=== PATIENT | female | born 1995 | race Caucasian/White ===

== ENCOUNTER → 2023-09-15 | Outpatient (CLI) | payer OTHER, SELFPAY ==
[2023-09-15 16:58] LABS: Absolute Lymphocyte Count 2.07 X10^3/uL (0.83-4.51); Absolute Neutrophil Count 7.7 X10^3/uL (2.0-7.7); Basophil# 0.03 X10^3/uL; Basophil% 0.3 % (0-1); Eosinophil# 0.07 X10^3/uL; Eosinophils% 0.7 % (0-5); Hematocrit 38.1 % (37-47); Hemoglobin 12.5 g/dL (12.0-15.0); Lymphocyte # 2.07 X10^3/ul (0.83-4.51); Lymphocyte % 19.8 % (19-41); Mean Corp Hgb Conc 32.8 g/dL (32-36); Mean Corpuscular Hgb 28.7 pg (27.0-32.0); Mean Corpuscular Volume 87.6 fL (81-99); Mean Platelet Vol. 10.4 fl (6.2-12.0); Monocyte# 0.54 X10^3/uL; Monocyte% 5.2 % (0-10); NRBC Flagged by Analyzer 0 % (0-5); Neutrophil # 7.71 X10^3/uL (2.7-7.7); Neutrophil % 73.6 % (47-70); Platelet Count 269 K/mm3 (150-450); RBC Distribution Width CV 11.6 % (11.6-14.6); RBC Distribution Width SD 36.9 fl (35.1-43.9); Red Blood Count 4.35 M/mm3 (4.2-5.4); White Blood Count 10.5 K/mm3 (4.4-11.0)
[2023-09-15 17:49] LABS: HIV - WCH Non-Reactive (Nonreactive); Hepatitis B Surface Antigen Non-Reactive (Nonreactive); Hepatitis C Antibody Non-Reactive (Nonreactive); Rubella IgG Reactive (Nonreactive); Syphilis Antibodies Non-reactive
[2023-09-18 07:09] LABS: Chlamydia By Nucleic Acid AMP Negative (Negative); Gonococcus By Nucleic Acid AMP Negative (Negative)
== END | disposition home or self-care (01) ==
PROVIDERS: Referring Provider Advanced Practice Midwife; Visit Provider Advanced Practice Midwife
DX: Z34.00 Encounter for supervision of normal first pregnancy, unspecified trimester (principal)
CPT/HCPCS: 36415; 85025; 86703; 86762; 86780; 86803; 86850; 86900; 86901; 87086; 87340; 87491; 87591; 88175; G0145

== ENCOUNTER → 2023-12-19 | Outpatient (CLI) | payer MEDICAID, SELFPAY ==
--- NOTE | 2023-12-19 13:30 | US_ITS ---
STUDY: SECOND AND THIRD TRIMESTER OBSTETRICAL ULTRASOUND REASON FOR EXAM: Female, 27 years old anatomy LMP: July 18, 2023. TECHNIQUE: Transabdominal and Transvaginal TECHNICAL QUALITY: Adequate. PRIOR ULTRASOUND: None. FINDINGS: There is a single intrauterine fetus. The fetus is in a breech presentation. There is demonstrated cardiac activity with a heart rate of 157 bpm. There is a normal amniotic fluid volume. The largest amniotic fluid pocket measures 4 cm x 11.4 cm. The amniotic fluid index (ANDERSON) is within normal limits. The placenta is anterior in location and is not low lying. There are Grade 0 placental changes. The cervix measures 4.5 cm in length. The adnexal regions are not visualized. BIOMETRY: BPD: 5.41 cm: 22 weeks, 3 days HC: 20.08 cm: 22 weeks, 2 days AC: 17.73 cm: 22 weeks, 4 days FL: 3.64 cm: 21 weeks, 4 days CI: 80.3% FL/BPD: 67.4% FL/HC: 18.1% FL/AC: 20.5% HC/AC: 1.1 age by current US: 21 weeks, 6 days. NICOLÁS by current US: April 24, 2024. Estimated weight: 487 grams, +/- 73 grams, 56 %. Age by LMP: 22 weeks, 0 days. NICOLÁS by LMP: April 23, 2024. ANATOMY: Gender: Male Cranium: Normal lateral ventricles. Normal choroid plexus. Normal cerebellum. Normal cisterna magna. Normal face, nose and lips. Chest: Normal 4-chamber heart. Abdomen/Pelvis: Normal diaphragm. Normal stomach. Normal abdominal wall. Normal cord insertion. Normal 3 vessel cord. Normal kidneys. Normal bladder. Spine: Normal cervical spine. Normal thoracic spine. Normal lumbar spine. Normal sacrum. Extremities: Normal bilateral upper extremities. Normal bilateral lower extremities. IMPRESSION: Single live uterine gestation with a mean gestational age of 21 weeks and 6 days. Electronically Signed: Anand Cardenas MD at 15:05 EDT , STUDY: FIRST TRIMESTER OBSTETRICAL ULTRASOUND REASON FOR EXAM: Female, 27 years old . Cervical length. LMP: July 18, 2023. TECHNIQUE: Transvaginal TECHNICAL QUALITY: Adequate. PRIOR ULTRASOUND: None. FINDINGS: Cervical length measures 4.5 cm. US/OB Anatomy Scan IMPRESSION: Cervical length measures 4.5 cm. Electronically Signed: Anand Cardenas MD at 15:05 EDT ,
== END | disposition home or self-care (01) ==
LOC: OPUS 13:30
PROVIDERS: Referring Provider Nurse Practitioner Women's Health; Visit Provider Nurse Practitioner Women's Health
DX: Z34.92 Encounter for supervision of normal pregnancy, unspecified, second trimester (principal)
CPT/HCPCS: 76805; 76817

== ENCOUNTER → 2024-02-03 | Outpatient (CLI) | payer OTHER, SELFPAY ==
[2024-02-03 09:18] LABS: Absolute Lymphocyte Count 1.27 X10^3/uL (0.83-4.51); Absolute Neutrophil Count 7.6 X10^3/uL (2.0-7.7); Basophil# 0.02 X10^3/uL; Basophil% 0.2 % (0-1); Eosinophil# 0.05 X10^3/uL; Eosinophils% 0.5 % (0-5); Hematocrit 33.4 % (37-47); Hemoglobin 11.1 g/dL (12.0-15.0); Lymphocyte # 1.27 X10^3/ul (0.83-4.51); Lymphocyte % 13.5 % (19-41); Mean Corp Hgb Conc 33.2 g/dL (32-36); Mean Corpuscular Hgb 30.1 pg (27.0-32.0); Mean Corpuscular Volume 90.5 fL (81-99); Mean Platelet Vol. 9.8 fl (6.2-12.0); Monocyte# 0.33 X10^3/uL; Monocyte% 3.5 % (0-10); NRBC Flagged by Analyzer 0 % (0-5); Neutrophil # 7.63 X10^3/uL (2.7-7.7); Neutrophil % 81.1 % (47-70); Platelet Count 210 K/mm3 (150-450); RBC Distribution Width CV 12.5 % (11.6-14.6); RBC Distribution Width SD 40.8 fl (35.1-43.9); Red Blood Count 3.69 M/mm3 (4.2-5.4); White Blood Count 9.4 K/mm3 (4.4-11.0)
[2024-02-03 09:37] LABS: Glucose Challenge Gest 1H 50g 118 mg/dL (70-140)
[2024-02-03 10:20] LABS: HIV - WCH Non-Reactive (Nonreactive); Syphilis Antibodies Non-reactive
== END | disposition home or self-care (01) ==
PROVIDERS: Referring Provider Nurse Practitioner Women's Health; Visit Provider Nurse Practitioner Women's Health
DX: Z34.92 Encounter for supervision of normal pregnancy, unspecified, second trimester (principal)
CPT/HCPCS: 36415; 82950; 85025; 86703; 86780

== ENCOUNTER → 2024-04-02 | Outpatient (CLI) | payer OTHER, SELFPAY | END | disposition home or self-care (01) | LOC: LABSPEC 16:24 | PROVIDERS: Referring Provider Obstetrics & Gynecology; Visit Provider Obstetrics & Gynecology | DX: Z34.02 Encounter for supervision of normal first pregnancy, second trimester (principal) | CPT/HCPCS: 87081 ==

== ENCOUNTER 2024-05-03 11:38 | Inpatient (IN) | payer OTHER, SELFPAY ==
[2024-05-03] VITALS (19 sets, daily range): BP systolic 118–140; BP diastolic 78–95; PULSE 81–108; RESP 16–18; TEMP 36.3–36.8; O2SAT 80–99; BMI 36.2
[2024-05-03] MEDS: 0.9% Saline Lock 10 ML Syringe IV (13:05)
[2024-05-03 13:23] LABS: Absolute Lymphocyte Count 1.36 X10^3/uL (0.83-4.51); Absolute Neutrophil Count 8.4 X10^3/uL (2.0-7.7); Basophil# 0.02 X10^3/uL; Basophil% 0.2 % (0-1); Eosinophil# 0.03 X10^3/uL; Eosinophils% 0.3 % (0-5); Hematocrit 37.4 % (37-47); Hemoglobin 12.5 g/dL (12.0-15.0); Lymphocyte # 1.36 X10^3/ul (0.83-4.51); Lymphocyte % 13.2 % (19-41); Mean Corp Hgb Conc 33.4 g/dL (32-36); Mean Corpuscular Hgb 29.1 pg (27.0-32.0); Mean Platelet Vol. 10.7 fl (6.2-12.0); Monocyte# 0.49 X10^3/uL; Monocyte% 4.8 % (0-10); NRBC Flagged by Analyzer 0 % (0-5); Neutrophil # 8.35 X10^3/uL (2.7-7.7); Neutrophil % 80.9 % (47-70); Platelet Count 203 K/mm3 (150-450); RBC Distribution Width CV 13.7 % (11.6-14.6); White Blood Count 10.3 K/mm3 (4.4-11.0)
[2024-05-03 14:25] LABS: Syphilis Antibodies Non-reactive
[2024-05-03] MEDS: 0.9% Normal Saline Single 100 ML IV.SOLN. INTRA-UTER (15:16)
--- NOTE | 2024-05-03 17:46 | HP.PCM.OB_ITS ---
HPI - General General Date of Admission: 05/03/24 HPI Narrative BERT CAMPBELL, is a 28 F who presents for iOL secondary to oligo ANDERSON 4 cm. no vb lof admits good fm, irreular ctx. Maternal Data Information NICOLÁS Calculator Estimated Delivery Date Method Current WG Current Estimate 04/25/24 LMP (Certain) 41w 1d Other Estimates 04/23/24 Ultrasound #2 41w 3d PFSH PFS Medical History (Updated 05/03/24 @ 13:45 by Min Maldonado) Oligohydramnios Home Medications ?Medication ?Instructions ?Recorded ?Last Taken ?Type omega-3 fatty acids 1,250 mg 1,250 mg PO DAILY 09/09/23 05/02/24 08:00 History capsule 1,250 mg vit,calcium no.40-iron 3 tab PO DAILY 09/09/23 05/02/24 08:00 History fum 27 mg iron-folate no.1 1 mg 3 tabs tablet (PNV-Select) famotidine 20 mg tablet (Pepcid) 15 mg PO QDAY PRN heart burn 03/02/24 05/02/24 21:30 History 15 mg echinacea 400 mg capsule 800 mg PO DAILY immu 05/03/24 05/02/24 08:00 History 800 mg magnesium L-threonate 48 mg 96 mg PO DAILY brain health 05/03/24 05/02/24 08:00 History magnesium (667 mg) capsule 96 mg Allergy/AdvReac Type Severity Reaction Status Date / Time No Known Allergies Allergy Verified 05/03/24 14:03 Family History Father Colon cancer, Onset Age: 45 Grandmother Glaucoma paternal Uncle CVA (cerebral vascular accident), Onset Age: 78 Aunt Cerebral palsy Paternal Grandmother Breast cancer, Onset Age: 82 Maternal Grandfather Cancer skin cancer Uncle Cancer Maternal- Bone Marrow Surgical History S/P sclerotherapy of varicose veins [place] teeth extracted Social History adopted: No household members: spouse current occupational status: employed current occupation: massage therapist current occupational exposures/hazards: No pets and animals: Yes pets and animals: dog(s) history of recent travel: Yes ([place]) out of state: Yes out of country: No sexually active: Yes Smoking Status: Never smoker alcohol intake: current alcohol intake frequency: a few times a month details: Not while substance use type: does not use well-balanced diet: about half the time caffeine: Yes (2 or3 times per week) Type: coffee eating out: 1-3 times/week during the past year weight has: remained stable what type of physical activity do you participate in: walking, bicycling and weight training frequency: 5-6 times per week duration: 15-30 minutes/day anson/adventist: Hindu seatbelt use: always do you feel safe at home: Yes additional social history: Klaudia- Construction History 1 Elective abortions Hx Para 0 Spontaneous abortions Hx # Term Pregnancies Ectopic pregnancies Hx # Pregnancies Multiple births # of living children Visit Details Expected Delivery Route/Plan Labor Preferences- CB/BF classes: no labor support person: Steve labor intervention preferences: tub, nitrous pain management options preferred: limited intervention if possible. Nitrous cut cord/dad catch: cord : yes PP control planned: [] discussed possible routes of delivery and associated risks: [] special requests: [] Plans Covid status: [] Flu vaccine: declines Tdap vaccine: declined Rhogam: NA LARC form signed: declined movement and labor precautions reviewed. Problem list reviewed and updated with the most current plan of care details and appropriate orders placed. Relevant counseling for the gestational age provided. Continue routine care and follow up unless otherwise noted in visit notes/problem list details OB Flowsheet Initial Weight: 159 lb Date -?-?-?-?-?-?-?-?-?-?-?-?- EGA Weight BP Urine Prot -?-?-?-?-?-?-?-?-?-?-?-?- Glucose FHR FuHt Pres Dilation -?-?-?-?-?-?-?-?-?-?-?-?- Effaced St Visit Note 09/15/23 -?-?-?-?-?-?-?-?-?-?-?-?- 8w 1d 159 lb 2 oz (+2 oz) 111/70 -?-?-?-?-?-?-?-?-?-?-?-?- 167 -?-?-?-?-?-?-?-?-?-?-?-?- KW- CRL cons wit h dates. declines NIPT. 10/17/23 -?-?-?-?-?-?-?-?-?-?-?-?- 12w 5d 156 lb (-3 lb) 111/66 -?-?-?-?-?-?-?-?-?-?-?-?- 153 -?-?-?-?--?-?-?-?-?-?-?-?- JV- no lof, vagi nal bleeding, or cramping. Some pressure. ultrasound today shows consistent CRL. 11/14/23 -?-?-?-?-?-?-?-?-?-?-?-?- 16w 5d 158 lb (-16 oz) 108/72 Negative -?-?-?-?-?-?-?-?-?-?-?-?- Negative 145 -?-?-?-?-?-?-?-?-?-?-?-?- SM- no vb crmapi ng US scheduled 12/09/23 -?-?-?-?-?-?-?-?-?-?-?-?- 20w 2d 163 lb (+4 lb) 104/68 Negative -?-?-?-?-?-?-?-?-?-?-?-?- Negative 153 -?-?-?-?-?-?-?-?-?-?-?-?- -NO VB. Nas Cooper. Cancelling MFM US due to insurance and ordered w/[facility]. 01/06/24 -?-?-?-?-?-?-?-?-?-?-?-?- 24w 2d 169 lb 8 oz (+10 lb 8 oz) 106/64 Negative -?-?-?-?-?-?-?-?-?-?-?-?- Negative 157 25 -?-?-?-?-?-?-?-?-?-?-?-?- -No VB, LOF. Good FM. declines flu. Doing well 02/03/24 -?-?-?-?-?-?-?-?-?-?-?-?- 28w 2d 178 lb 6 oz (+19 lb 6 oz) 103/70 Negative -?-?-?-?-?-?-?-?-?-?-?-?- Negative 145 29 -?-?-?-?-?-?-?-?-?-?-?-?- SM- no vb lof go od fm no regular ctx 02/20/24 -?-?-?-?-?-?-?-?-?-?-?-?- 30w 5d 183 lb (+24 lb) 104/71 Negative -?-?-?-?-?-?-?-?-?-?-?-?- Negative 145 31 -?-?-?-?-?-?-?-?-?-?-?-?- kw- no vb/lof/ct x. good fm. pepcid for acid reflux 03/02/24 -?-?-?-?-?-?-?-?-?-?-?-?- 32w 2d 186 lb 4 oz (+27 lb 4 oz) 115/78 Negative -?-?-?-?-?-?-?-?-?-?-?-?- Negative 140 33 -?-?-?-?-?-?-?-?-?-?-?-?- SM- no vb lof go od fm no regular ctx 03/16/24 -?-?-?-?-?-?-?-?-?-?-?-?- 34w 2d 190 lb 6 oz (+31 lb 6 oz) 116/76 Negative -?-?-?-?-?-?-?-?-?-?-?-?- Negative 140 35 -?-?-?-?-?-?-?-?-?-?-?-?- SM- SM- no vb lof good fm no reu glar ctx 04/02/24 -?-?-?-?-?-?-?-?-?-?-?-?- 36w 5d 196 lb 6 oz (+37 lb 6 oz) 114/73 Negative -?-?-?-?-?-?-?-?-?-?-?-?- Negative 142 37 -?-?-?-?-?-?-?-?-?-?-?-?- MH-No VB, LOF or CTX. Good FM. Refuses internal exam. GBS done 04/09/24 -?-?-?-?-?-?-?-?-?-?-?-?- 37w 5d 196 lb 4 oz (+37 lb 4 oz) 126/80 Negative -?-?-?-?-?-?-?-?-?-?-?-?- Negative 145 38 0 -?-?-?-?-?-?-?-?-?-?-?-?- KW- no vb/lof/re g ctx. good fm. 04/15/24 -?-?-?-?-?-?-?-?-?-?-?-?- 38w 4d 195 lb 8 oz (+36 lb 8 oz) 119/72 Negative -?-?-?-?-?-?-?-?-?-?-?-?- Negative 144 38 Cephalic 0 -?-?-?-?-?-?-?-?-?-?-?-?- JV- cervix is of f to the right and closed. Bedside scan to document vtx. no lof, vaginal bleeding, or dec fm. 04/22/24 -?-?-?-?-?-?-?-?-?-?-?-?- 39w 4d 198 lb 6 oz (+39 lb 6 oz) 128/84 Negative -?-?-?-?-?-?-?-?-?-?-?-?- Negative 145 39 Cephalic 0 -?-?-?-?-?-?-?-?-?-?-?-?- SM- no vb lof go od fm no regular ctx 04/28/24 -?-?-?-?-?-?-?-?-?-?-?-?- 40w 3d 198 lb 4 oz (+39 lb 4 oz) 124/86 Negative -?-?-?-?-?-?-?-?-?-?-?-?- Negative 140 40 Cephalic 1 -?-?-?-?-?-?-?-?-?-?-?-?- 60 -2 KW- no vb/ lof/reg ctx. good fm. cervix is soft and midposition. [place] bulb IOL set up for friday. KW- no vb/lof/reg ctx. good fm. cervix is soft and midposition. [place] bulb IOL set up for 05/03/24 -?-?-?-?-?-?-?-?-?-?-?-?- 41w 1d 198 lb 8 oz (+39 lb 8 oz) 118/81 Negative -?-?-?-?-?-?-?-?-?-?-?-?- Negative 130 42 Cephalic 1 .5 -?-?-?-?-?-?-?-?-?-?-?-?- 60 -2 SM- no vb lof good fm irregular ctx discussed management SM- no vb lof good fm irregu lar ctx discussed management and SM- no vb lof good fm irregu lar ctx discussed management and anderson only 4 cm at be dside recommend IOL now NST FHR Rate Baby A Baseline: 130 Variability:: Moderate Accelerations:: 15 x 15 Decelerations:: None NST Reactive:: Yes FHR Category:: Category I Uterine Activity:: q3-5 ROS Constitutional Constitutional: Reports systems reviewed and no addt'l complaints, except as d ocumented ENT HEENT: Reports systems reviewed and no addt'l complaints, except as documented Cardiovascular Cardiovascular: Reports systems reviewed and no addt'l complaints, except as documented Respiratory/Chest Respiratory/Chest: Reports systems reviewed and no addt'l complaints, except as documented Gastrointestinal Gastrointestinal: Reports systems reviewed and no addt'l complaints, except as documented and nausea; Denies abdominal pain Genitourinary Genitourinary: Reports systems reviewed and no addt'l complaints, except as documented, contractions Details: present and frequency (regular ) and movement Details: present Musculoskeletal Musculoskeletal: Reports systems reviewed and no addt'l complaints, except as documented Integumentary Integumentary: Reports as per HPI Neurologic Neurologic: Reports systems reviewed and no addt'l complaints, except as documented Endocrine Endocrinology: Reports systems reviewed and no addt'l complaints, except as documented Vital Signs Vital Signs Vital Signs: 05/03/24 12:32 05/03/24 12:32 05/03/24 12:32 Temperature 98.2 F Temperature Source Temporal Pulse Rate Respiratory Rate 18 Blood Pressure BP Systolic BP Diastolic Pulse Ox 05/03/24 12:36 05/03/24 12:36 05/03/24 12:36 Temperature Temperature Source Pulse Rate 81 92 Respiratory Rate Blood Pressure 118/78 BP Systolic 118 BP Diastolic 78 Pulse Ox 05/03/24 12:36 05/03/24 14:30 05/03/24 14:30 Temperature Temperature Source Temporal Pulse Rate Respiratory Rate 18 Blood Pressure BP Systolic BP Diastolic Pulse Ox 97 05/03/24 14:30 05/03/24 14:32 05/03/24 14:32 Temperature 98.0 F Temperature Source Pulse Rate 96 Respiratory Rate Blood Pressure 124/86 H BP Systolic 124 BP Diastolic 86 Pulse Ox 05/03/24 15:44 05/03/24 15:44 05/03/24 15:44 Temperature Temperature Source Temporal Pulse Rate 106 H Respiratory Rate Blood Pressure 127/85 H BP Systolic 127 BP Diastolic 85 Pulse Ox 05/03/24 15:44 05/03/24 15:44 05/03/24 15:45 Temperature 98.2 F Temperature Source Pulse Rate Respiratory Rate 16 Blood Pressure BP Systolic BP Diastolic Pulse Ox 98 05/03/24 16:56 05/03/24 16:56 Temperature Temperature Source Pulse Rate 96 Respiratory Rate Blood Pressure 125/90 H BP Systolic 125 BP Diastolic 90 Pulse Ox Weight Weight: 198 lb 3.129 oz Body Mass Index (BMI) 36.2 Physical Exam Const alert, oriented x3 and healthy appearing Constitutional Narrative: uncomfortable with contractions HEENT normocephalic and moist oral mucous membranes Head and Scalp: atraumatic Neck full ROM, no lymphadenopathy, supple and thyroid normal General: trachea midline Thyroid: thyroid normal Lymph Lymphatic: no lymphadenopathy noted Chest inspection of chest normal Resp normal respiratory effort Cardio regular rate GI soft to palpation and non-tender GI Narrative: gravid Inspection: gravid external exam normal Bimanual Exam - Vag & Uterus: uterus non-tender Manual OB Exam: estimated gestational size appropriate, presentation cephalic, dilated, effaced and station Extremity normal to inspection General Extremity: Negative for edema Skin no rashes or lesions noted Neuro deep tendon reflexes 2+ bilaterally Motor Exam: strength 5/5 throughout and clonus absent Psych mental status grossly normal Labs Labs Labs: Blood Type B POSITIVE Antibody Screen NEGATIVE Hct 37.4 % (37-47) Hgb 12.5 g/dL (12.0-15.0) Obstetrics Ultrasound Syphilis Total Ab Non-reactive Rubella IgG Antibody Reactive (Nonreactive) Hep Bs Antigen Non-Reactive (Nonreactive) Hepatitis C Antibody Non-Reactive (Nonreactive) Chlamydia DNA (ISAIAH) Negative (Negative) N.gonorrhoeae DNA (ISAIAH) Negative (Negative) HIV 1&2 Antibody Non-Reactive (Nonreactive) Glucose 1 Hr 50 gm 118 mg/dL (70-140) Assessment & Plan (1) Oligohydramnios in third trimester: COMMENT: ANDERSON 4 cm recommend IOL (2) Supervision of normal first : QUALIFIERS: Trimester: second trimester Qualified Code(s): Z34.02 - Encounter for supervision of normal first , second trimester COMMENT: PRR,, NICOLÁS 04/25/24 Boy, Klaudia (3) : QUALIFIERS: Weeks of gestation: 41 weeks Qualified Code(s): O48.0 - Post-term ; Z3A.41 - 41 weeks gestation of COMMENT: Declines genetic & carrier testing, nl anatomy and adequate CL PLAN: Plan plan FB and pitocin if needed, marty well now.
[2024-05-03] MEDS: Mag Hydrox/Al Hydrox/Simeth 30 ML UDC PO (21:23)
[2024-05-03] MEDS: Lactated Ringers 1,000 ML 50 ML IV (22:13)
[2024-05-03] MEDS: Oxytocin 15 Units/NS 250ml 15 UNITS/250 ML IV.SOLN 2 UNITS IV (22:13)
[2024-05-04] VITALS (77 sets, daily range): BP systolic 100–180; BP diastolic 64–102; PULSE 83–127; RESP 16–18; TEMP 36.4–37.6; O2SAT 91–100
[2024-05-04] MEDS: Mag Hydrox/Al Hydrox/Simeth 30 ML UDC PO (04:46)
[2024-05-04] MEDS: Lactated Ringers 1,000 ML 150 ML IV ×3 (07:20→17:44)
[2024-05-04] MEDS: LACTATED RINGERS 500 ML 999 ML IV (08:00)
[2024-05-04] MEDS: fentaNYL 100 MCG/2 ML Ampul IV (08:13)
--- NOTE | 2024-05-04 08:50 | PCM.PN.CNM ---
Subjective Subjective breathing through contractions, painful Objective Data Objective Data Vital Signs: Vital Signs Temp Pulse Resp BP Pulse Ox 97.5 F L 102 H 18 125/91 H 93 05/04/24 06:20 05/04/24 08:48 05/04/24 06:20 05/04/24 08:34 05/04/24 08:48 Weight: 198 lb 3.129 oz Body Mass Index (BMI) 36.2 Intake & Output: Intake and Output for Last 24 Hours 05/02/24 05/03/24 05/04/24 23:59 23:59 23:59 Intake Total 2.27 / 2.27 1241.86 / 1241.86 Balance 2.27 / 2.27 1241.86 / 1241.86 Lab / Micro Data 05/03/24 13:05 Labs: Laboratory Results - last 24 hr 05/03/24 13:05: WBC 10.3, RBC 4.30, Hgb 12.5, Hct 37.4, MCV 87.0, MCH 29.1, MCHC 33.4, RDW Std Deviation 43.0, RDW Coeff of Judith 13.7, Plt Count 203, MPV 10.7, Immature Gran % (Auto) 0.600, Neut % (Auto) 80.9 H, Lymph % (Auto) 13.2 L, [place] % (Auto) 4.8, Eos % (Auto) 0.3, Baso % (Auto) 0.2, Absolute Neuts (auto) 8.4 H, Absolute Lymphs (auto) 1.36, Nucleated RBC % 0, Syphilis Total Ab Non-reactive, Blood Type B POSITIVE, Antibody Screen NEGATIVE NST FHR Rate Baby A Baseline: 125 Variability:: Moderate Assessment & Plan (1) Oligohydramnios in third trimester: COMMENT: ANDERSON 4 cm recommend IOL (2) Encounter for induction of labor: COMMENT: jain/pit PLAN: Plan at 41.2 IOL for oligohydramnios currently 6-7cm/70/-1 AROM, clear fluid current tracing: late decelerations vs maternal HR noted while sitting up for epidural placement. pitocin turned off. prior has been cat 1 with accelerations. FHT: Moderate variability reactive no decelerations category I tracing [place]: q2-3 Contractions reviewed tracing abnormalities since last note: A/P: resume pitocin after cat 1 tracing. recheck cervical exam once comfortable with epidural. if unchanged will place IUPC
[2024-05-04] MEDS: fentaNYL-bupivacaine (epidural) 100 ML BAG EPIDURAL ×3 (09:04→19:04)
[2024-05-04] MEDS: Pantoprazole Sodium 40 MG in 0.9% Normal Saline (100mL MB+) 100 ML 330 MG IV (11:05)
--- NOTE | 2024-05-04 12:16 | PCM.PN.CNM ---
Subjective Subjective comfortable with epidural Objective Data Objective Data Vital Signs: Vital Signs Temp Pulse Resp BP Pulse Ox 97.5 F L 92 16 131/77 H 100 05/04/24 10:25 05/04/24 11:20 05/04/24 10:04 05/04/24 11:20 05/04/24 10:58 Weight: 198 lb 3.129 oz Body Mass Index (BMI) 36.2 Intake & Output: Intake and Output for Last 24 Hours 05/02/24 05/03/24 05/04/24 23:59 23:59 23:59 Intake Total 2.27 / 2.27 1463.16 / 1463.16 Balance 2.27 / 2.27 1463.16 / 1463.16 Lab / Micro Data 05/03/24 13:05 Labs: Laboratory Results - last 24 hr 05/03/24 13:05: WBC 10.3, RBC 4.30, Hgb 12.5, Hct 37.4, MCV 87.0, MCH 29.1, MCHC 33.4, RDW Std Deviation 43.0, RDW Coeff of Judith 13.7, Plt Count 203, MPV 10.7, Immature Gran % (Auto) 0.600, Neut % (Auto) 80.9 H, Lymph % (Auto) 13.2 L, [place] % (Auto) 4.8, Eos % (Auto) 0.3, Baso % (Auto) 0.2, Absolute Neuts (auto) 8.4 H, Absolute Lymphs (auto) 1.36, Nucleated RBC % 0, Syphilis Total Ab Non-reactive, Blood Type B POSITIVE, Antibody Screen NEGATIVE NST FHR Rate Baby A Baseline: 115 Variability:: Moderate Accelerations:: 15 x 15 Decelerations:: Variable and Prolonged FHR Category:: Category II Uterine Activity:: q3-5 Assessment & Plan (1) Encounter for induction of labor: COMMENT: jain/cj (2) Oligohydramnios in third trimester: COMMENT: ANDERSON 4 cm recommend IOL (3) Antepartum variable deceleration: COMMENT: amnioinfusion PLAN: Plan -amnioinfusion, IVF bolus, reposition prn -restart pitocin as able per protocol -reassess in 30 minutes
[2024-05-04] MEDS: Amnioinfusion- 0.9% NS 1,000 ML IV.SOLN. 1000 ML INTRA-UTER (12:24)
--- NOTE | 2024-05-04 13:28 | PN.OBGYN_ITS ---
Objective Data Objective Data Vital Signs: Vital Signs Temp Pulse Resp BP Pulse Ox 97.5 F L 120 H 16 138/86 H 99 05/04/24 10:25 05/04/24 13:10 05/04/24 10:04 05/04/24 13:05 05/04/24 13:10 Weight: 198 lb 3.129 oz Body Mass Index (BMI) 36.2 Intake & Output: Intake and Output for Last 24 Hours 05/02/24 05/03/24 05/04/24 23:59 23:59 23:59 Intake Total 2.27 / 2.27 2233.43 / 2233.43 Balance 2.27 / 2.27 2233.43 / 2233.43 Lab / Micro Data 05/03/24 13:05 Labs: Laboratory Results - last 24 hr 05/03/24 13:05: Syphilis Total Ab Non-reactive, Blood Type B POSITIVE, Antibody Screen NEGATIVE NST FHR Rate Baby A Baseline: 115 Variability:: Moderate Accelerations:: 15 x 15 Decelerations:: Variable FHR Category:: Category II Uterine Activity:: q2-4 Assessment & Plan (1) Antepartum variable deceleration: COMMENT: amnioinfusion (2) Encounter for induction of labor: COMMENT: jain/pit (3) Oligohydramnios in third trimester: COMMENT: ANDERSON 4 cm recommend IOL PLAN: Plan at 41.2 IOL for oligo current tracing: FHT: Moderate variability reactive x1 variable category II tracing [place]: Contractions reviewed tracing abnormalities since last note: variable x1 with improved overall pattern, with accelerations and mod variability. continues at 9/+1 A/P: continue amnioinfusion reassess cervix in 2 hours/prn increase pitocin per protocol
[2024-05-04] MEDS: Oxytocin 15 Units/NS 250ml 15 UNITS/250 ML IV.SOLN 83 UNITS IV (20:35)
--- NOTE | 2024-05-04 20:43 | EX.PCM.OBVAG ---
Assessment & Plan (1) (spontaneous vaginal delivery): COMMENT: LC IOL-oligo boy (2) Supervision of normal first : QUALIFIERS: Trimester: second trimester Qualified Code(s): Z34.02 - Encounter for supervision of normal first , second trimester COMMENT: PRR,, NICOLÁS 04/25/24 Boy, Klaudia (3) : QUALIFIERS: Weeks of gestation: 41 weeks Qualified Code(s): O48.0 - Post-term ; Z3A.41 - 41 weeks gestation of COMMENT: Declines genetic & carrier testing, nl anatomy and adequate CL Maternal Data Information NICOLÁS Calculator Estimated Delivery Date Method Current WG Current Estimate 04/25/24 LMP (Certain) 41w 2d Other Estimates 04/23/24 Ultrasound #2 41w 4d Final NICOLÁS: 04/25/24 Gestational age: 41.2 Vaginal Delivery Maternal Presentation Maternal Presentation: Medically Indicated Induction Maternal Presentation: at 41.2 admitted for IOL for oligo s/p jain, pitocin AROM. Type of Induction: Pitocin and Jain Bulb Medical Reason for Induction: Other (oligiohydramnios) Vaginal Delivery Information Procedure Performed: Spontaneous Vaginal Delivery Surgeon/Practitioner: Krisite Medellin Date of Procedure: 05/04/24 Pre-Procedure Diagnosis: see problem list Post-Procedure Diagnosis: Type of anesthesia: Epidural Estimated Blood Loss: 200 Time of Delivery: 19:59 Findings Description of procedure: Patient began pushing and delivered the head in the BRADLEY presentation. The head was delivered atraumatically and a loose nuchal cord ?1 was identified and easily reduced over the 's head. The anterior and posterior shoulders delivered without complication followed by the rest of the infant and the infant was placed on the maternal abdomen. Delayed cord clamping was employed for approximately 60 seconds. Cord was clamped and cut and gentle traction was applied to the cord and the placenta delivered spontaneously immediately following it was noted to be intact with three-vessel cord. The perineum and vagina were inspected and noted to have 1st degree with right labia tear repaired with 3-0 vicryl. EBL was 200cc. Patient and infant tolerated delivery well. Presentation: Vertex Amniotic Membrane Rupture Type: Artificial Amniotic Fluid Description: Lightly stained meconium Placental Delivery Description: Spontaneous Placenta Disposition: [facility] Cord Vessel Description: 3 Vessels Cord Entanglement: Around neck x 1, loose A Gender: Male (1 minute): 8 (5 minute): 9 Delayed Cord Clamping: Yes Post Vaginal Deli Medications given after delivery: IV Pitocin Episiotomy Description: None Laceration: 1st degree Complication Complications: No Procedures Urinary/Genital [id number]: [id number] Vaginal Delivery [facility]
--- NOTE | 2024-05-04 20:46 | DCINST_ITS ---
Discharge Instructions Diet Discharge Diet: No restrictions DC O2, CPAP, BIPAP needs Home O2 Discharge instructions: No Dressing / Incision Discharge Activity: May Not Drive and May Shower May resume sexual activity in: 6 weeks Weight Bearing Status: Full weight bearing Dressing / Incision Call your doctor if your incision/area has: Sudden Increased Bleeding, Increased Pain/ Swelling and Foul Smelling Discharge Call your doctor if you observe: Fever of 101 or Higher, Numbness or Tingling, Change in Color, Inability to urinate, Inability to have a bowel movement, Using more than 1 pad per hour, Shortness of breath, Dizziness, Fainting spells, Chest pain, Calf discomfort and Uncontrolled pain Follow Up Care Please Follow Up With: Kristie Medellin CNM When: 6 weeks , please call office to make an appointment. Congratulations on the of your baby! Test Results: Test results from this visit will be discussed in further detail at your follow- up appointment, if applicable. Discharge Plan Admission Admit Date/Time: 05/03/24 11:38 Attending Provider: Kristie Medellin Primary Care Provider: Care Physician,Kayli Primary Discharge Orders/Prescriptions Prescriptions: No Action PNV-Select 27-1 mg tablet 3 tab PO DAILY omega-3 fatty acids 1,250 mg capsule 1,250 mg PO DAILY famotidine [Pepcid] 20 mg tablet 15 mg PO QDAY PRN (Reason: heart burn) echinacea 400 mg capsule 800 mg PO DAILY Rx Instructions: administer with meals magnesium L-threonate 48 mg magnesium (667 mg) capsule 96 mg PO DAILY Referrals / Follow Up: Care Physician,No Primary [Primary Care Provider] -
[2024-05-04] MEDS: Acetaminophen 500 MG Tablet 1000 MG PO (21:36)
[2024-05-05] VITALS (14 sets, daily range): BP systolic 110–149; BP diastolic 55–79; PULSE 88–118; RESP 16–18; TEMP 36.3–37.2; O2SAT 96–99
[2024-05-05] MEDS: Benzocaine/Lanolin/Aloe Vera 85 GM Spray 1 SPRAY TOPICAL (07:31)
[2024-05-05] MEDS: Acetaminophen 500 MG Tablet 1000 MG PO ×2 (08:12→20:42)
--- NOTE | 2024-05-05 08:17 | PCM.PN.OB ---
Subjective Subjective Patient doing well without complaints. Tolerating PO. Ambulating and voiding without difficulty. Feeding well. Denies chest pain, shortness of breath, calf pain/swelling, fevers, chills, lightheadedness. Objective Data Objective Data Vital Signs: Vital Signs Temp Pulse Resp BP Pulse Ox O2 Del Method 97.3 F L 114 H 16 117/74 97 Room Air 05/05/24 04:00 05/05/24 07:40 05/05/24 04:00 05/05/24 07:40 05/05/24 07:39 05/05/24 04:00 Oxygen Delivery Method Room Air Weight: 198 lb 3.129 oz Body Mass Index (BMI) 36.2 Intake & Output: Intake and Output for Last 24 Hours 05/03/24 05/04/24 05/05/24 23:59 23:59 23:59 Intake Total 2.27 / 2.27 4243.73 / 4243.73 1250 / 1250 Output Total 1500 / 1500 Balance 2.27 / 2.27 2743.73 / 2743.73 1250 / 1250 Lab / Micro Data 05/03/24 13:05 Physical Exam Const alert and oriented x3 HEENT normocephalic Eyes PERRL Neck full ROM Resp normal respiratory effort GI soft to palpation GI Narrative: FF below U Assessment & Plan (1) (spontaneous vaginal delivery): COMMENT: LC IOL-oligo boy Vin PLAN: Plan s/p PPD # 1 1. routine post delivery care 2. breast feeding- support given 3. rh positive 4. rubella immune
[2024-05-06 02:29] VITALS: BP 114/69; PULSE 95; PULSE 96; RESP 14; TEMP 36.3; O2SAT 97
--- NOTE | 2024-05-06 07:24 | PCM.PN.OB ---
Subjective Subjective Patient doing well without complaints. Tolerating PO. Ambulating and voiding without difficulty. feeding well. Denies chest pain, shortness of breath, calf pain/swelling, fevers, chills, lightheadedness. Objective Data Objective Data Vital Signs: Vital Signs Temp Pulse Resp BP Pulse Ox O2 Del Method 97.4 F L 95 14 114/69 97 Room Air 05/06/24 02:29 05/06/24 02:29 05/06/24 02:29 05/06/24 02:29 05/06/24 02:29 05/06/24 02:29 Oxygen Delivery Method Room Air Weight: 198 lb 3.129 oz Body Mass Index (BMI) 36.2 Intake & Output: Intake and Output for Last 24 Hours 05/04/24 05/05/24 05/06/24 23:59 23:59 23:59 Intake Total 4243.73 / 4243.73 1250 / 1250 Output Total 1500 / 1500 Balance 2743.73 / 2743.73 1250 / 1250 Lab / Micro Data 05/03/24 13:05 ROS Constitutional Constitutional: Reports systems reviewed and no addt'l complaints, except as documented Cardiovascular Cardiovascular: Reports systems reviewed and no addt'l complaints, except as documented Respiratory/Chest Respiratory/Chest: Reports systems reviewed and no addt'l complaints, except as documented Gastrointestinal Gastrointestinal: Reports systems reviewed and no addt'l complaints, except as documented Physical Exam Const alert, oriented x3 and no apparent distress HEENT Head and Scalp: atraumatic Resp normal respiratory effort GI soft to palpation and non-tender Bimanual Exam - Vag & Uterus: uterus non-tender Uterus Palpation: uterus fundus firm (below Umbilicus) Assessment & Plan (1) (spontaneous vaginal delivery): COMMENT: LC IOL-oligo boy [place] PLAN: Plan s/p PPD # 2 1. routine post delivery care 2. breast feeding- support given 3. rh positive 4. rubella immune
[2024-05-06] MEDS: Acetaminophen 500 MG Tablet 1000 MG PO (08:52)
[2024-05-06 10:00] VITALS: BP 106/68; PULSE 83; RESP 16; TEMP 36.4
[2024-05-06 10:58] VITALS: BP 106/68; PULSE 83
[2024-05-06 14:00] VITALS: BP 127/80; PULSE 83; RESP 16; TEMP 36.4
[2024-05-06 14:30] VITALS: BP 127/81; PULSE 90
[2024-05-06] MEDS: Naproxen 500 MG Tablet PO (14:34)
--- NOTE | 2024-05-09 17:45 | DS.PCM_ITS ---
Providers Date of Admission: 05/03/24 Date of Discharge: 05/06/24 Primary Care Physician: Kayli Primary Care Phys Reason For Visit: INDUCTION Diagnosis Discharge Diagnosis (1) (spontaneous vaginal delivery): Status: Acute Code(s): O80 - Encounter for full-term uncomplicated delivery Plan s/p PPD # 2 1. routine post delivery care 2. breast feeding- support given 3. rh positive 4. rubella immune Medications at Discharge Home Medications omega-3 fatty acids 1,250 mg capsule 1,250 mg PO DAILY 09/09/23 vit,calcium no.40-iron fum 27 mg iron-folate no.1 1 mg tablet (PNV- Select) 3 tab PO DAILY 09/09/23 famotidine 20 mg tablet (Pepcid) 15 mg PO QDAY PRN heart burn 03/02/24 echinacea 400 mg capsule 800 mg PO DAILY immu 05/03/24 magnesium L-threonate 48 mg magnesium (667 mg) capsule 96 mg PO DAILY brain health 05/03/24 Hospital Course Summary of Care Provided Hospital Course: IOL oligo proceeded to complete dilation delivered uncomplciated delivery routine PP care 2 days Weight / BMI Weight Weight: 198 lb 3.129 oz Body Mass Index (BMI) 36.2 ABG / Lab / Microbiology Data 05/03/24 13:05 D/C Instructions Discharge Diet: No restrictions May resume sexual activity in: 6 weeks Weight Bearing Status: Full weight bearing Call your doctor if your incision/area has: Sudden Increased Bleeding, Increased Pain/ Swelling and Foul Smelling Discharge Call your doctor if you observe: Fever of 101 or Higher, Numbness or Tingling, Change in Color, Inability to urinate, Inability to have a bowel movement, Using more than 1 pad per hour, Shortness of breath, Dizziness, Fainting spells, Chest pain, Calf discomfort and Uncontrolled pain DC O2, CPAP, BIPAP Needs Home O2 Discharge instructions: No Please Follow Up With: Kristie Medellin CNM When: 6 weeks , please call office to make an appointment. Congratulations on the of your baby! Meaningful Use Info Meaningful Use Meaningful Use Diagnoses (Choose all that apply): None applicable Ischemic Stroke Statin Dosing Therapy Reference: STATIN DOSE THERAPY REFERENCE: * Patients > 75 years receive moderate or high dose statin therapy. * Patients 75 years or YOUNGER should receive HIGH intensity statin dose unless contraindicated. You will be required to document reason for non-treatment if statin daily dose does not meet guidelines. HIGH DOSE STATIN THERAPY DAILY Atorvastatin > than or = to 40 mg Rosuvastatin > than or = to 20 mg Amlodipine + Atorvastatin > than or = to 2.5/40 mg Ezetimibe + Simvastatin 10/80 mg Simvastatin 80mg Discharge Plan Admission Admit Date/Time: 05/03/24 11:38 Attending Provider: Kristie Medellin Primary Care Provider: Care Physician,No Primary Instructions Patient Instructions: After a Vaginal Discharge Orders/Prescriptions Prescriptions: No Action PNV-Select 27-1 mg tablet 3 tab PO DAILY omega-3 fatty acids 1,250 mg capsule 1,250 mg PO DAILY famotidine [Pepcid] 20 mg tablet 15 mg PO QDAY PRN (Reason: heart burn) echinacea 400 mg capsule 800 mg PO DAILY Rx Instructions: administer with meals magnesium L-threonate 48 mg magnesium (667 mg) capsule 96 mg PO DAILY Referrals / Follow Up: Care Physician,Kayli Primary [Primary Care Provider] - Disposition Disposition (needs filled in before D/C Order can be placed): Home, Self Care
== END 2024-05-06 15:30 | disposition home or self-care (01) | DRG 807 ==
PROVIDERS: Obstetrics & Gynecology; Admitting Provider Registered Nurse; Referring Provider Registered Nurse; Visit Provider Registered Nurse
DX: O41.03X0 Oligohydramnios, third trimester, not applicable or unspecified (principal); Z37.0 Single live birth; O48.0 Post-term pregnancy; O69.81X0 Labor and delivery complicated by cord around neck, without compression, not applicable or unspecified; O76 Abnormality in fetal heart rate and rhythm complicating labor and delivery; O77.0 Labor and delivery complicated by meconium in amniotic fluid; O70.0 First degree perineal laceration during delivery; Z3A.41 41 weeks gestation of pregnancy
CPT/HCPCS: 59025; 59050; 85025; 86780; 86850; 86900; 86901; 99221; A4216; G0378